=== PATIENT | male | born 1970 | race Caucasian/White ===

== ENCOUNTER 2017-07-06 13:08 | Emergency (ER) | payer SELFPAY ==
[~2017-07-06] VITALS: Wt 108.4 kg
[~2017-07-06 13:08] MED LIST: ALBUTEROL0.09 MG/A2 IH; Atrovent I0.5 MG/2.5 INH; CORDROL20 MG PO; DAYPRO600 M1 PO; DOXYCYCLINE HY100 M3 PO; MEDROL DOSEPAK4 MG PO; PREDNICOT20 MG PO; PREDNISONE10 MG PO; PROVENTIL0.09 MG/A1 IH; PROVENTIL0.09 MG/AC IH; SKELAXIN800 MG PO; VIBRAMYCIN100 MG PO; ZITHROMAX250 MG PO
[2017-07-06] MEDS ORDERED: PROVENTIL HFA6.7 GM INH (13:30)
[2017-07-06 13:56] LABS: BASO % 0.4 % (0.0-1.0); EOS # 0.3 10*3/uL (0.0-0.4); EOS % 2.8 % (1.0-4.0); HEMATOCRIT 41.3 % (42.0-52.0); HEMOGLOBIN 14.7 g/dl (14.0-18.0); LYMPH % 18.4 % (27.0-41.0); MEAN CELL VOLUME 89.4 fl (80.0-94.0); MEAN CORPUSCULAR HGB 31.8 pg (27.0-31.0); MEAN CORPUSCULAR HGB CONC 35.6 g/dl (33.0-37.0); MEAN PLATELET VOLUME 8.5 fl (9.6-12.3); MONO # 0.6 10*3/uL (0.1-1.0); MONO % 5.1 % (3.0-9.0); NEUT % 72.9 % (47.0-73.0); PLATELET COUNT AUTOMATED 310 10*3/uL (130-400); RED BLOOD COUNT 4.62 10*6/uL (4.50-5.90); RED CELL DISTRI WIDTH 12.2 % (0-14.5)
[2017-07-06 14:15] LABS: ALBUMIN 3.9 gm/dl (3.1-4.5); ALKALINE PHOSPHATASE 86 U/L (45-117); BUN 16 mg/dl (7-24); CHLORIDE 104 mmol/L (98-107); CREATININE 0.93 mg/dL (0.70-1.30); POTASSIUM 3.8 mmol/L (3.5-5.1); SGOT/AST 23 IU/L (3-35); SGPT/ALT 31 U/L (12-78); SODIUM 138 mmol/L (136-145)
[2017-07-06 14:18] LABS: TROPONIN I < 0.015 ng/ml (<0.045)
[2017-07-06] MEDS ORDERED: PREDNISONE20 M1 PO (15:13)
[2017-07-06] MEDS ORDERED: ZITHROMAX250 MG PO (15:13)
[2017-07-06] MEDS ORDERED: DUONEB 3 MG/3 ML3 M1 INH (15:15)
== END 2017-07-06 13:36 | disposition home or self-care (01) ==
LOC: ED 13:08
PROVIDERS: Nurse Practitioner Family
DX: J20.9 Acute bronchitis, unspecified (principal); J44.9 Chronic obstructive pulmonary disease, unspecified; Z88.0 Allergy status to penicillin

== ENCOUNTER 2017-09-26 09:44 | Emergency (ER) | payer SELFPAY ==
[~2017-09-26] VITALS: Ht 175.2 cm; Wt 108.9 kg
[~2017-09-26 09:44] MED LIST changes: +DUONEB 3 MG/3 ML3 M1 INH; +PREDNISONE20 M1 PO; +PROVENTIL HFA6.7 GM INH
[2017-09-26 10:14] LABS: BASO # 0.1 10*3/uL (0.0-0.1); BASO % 0.8 % (0.0-1.0); EOS # 0.8 10*3/uL (0.0-0.4); EOS % 12.5 % (1.0-4.0); HEMATOCRIT 44.1 % (42.0-52.0); HEMOGLOBIN 15.5 g/dl (14.0-18.0); LYMPH # 2.3 10*3/uL (1.3-4.4); LYMPH % 35.7 % (27.0-41.0); MEAN CORPUSCULAR HGB 30.9 pg (27.0-31.0); MEAN CORPUSCULAR HGB CONC 35.1 g/dl (33.0-37.0); MEAN PLATELET VOLUME 8.7 fl (9.6-12.3); MONO # 0.4 10*3/uL (0.1-1.0); MONO % 6.7 % (3.0-9.0); NEUT # 2.9 10*3/uL (2.3-7.9); PLATELET COUNT AUTOMATED 291 10*3/uL (130-400); RED BLOOD COUNT 5.01 10*6/uL (4.50-5.90); RED CELL DISTRI WIDTH 12.1 % (0-14.5); WHITE BLOOD COUNT 6.6 10*3/uL (4.8-10.8)
[2017-09-26 10:30] LABS: ALBUMIN 4.1 gm/dl (3.1-4.5); ALKALINE PHOSPHATASE 77 U/L (45-117); BUN 12 mg/dl (7-24); CHLORIDE 106 mmol/L (98-107); CREATININE 0.93 mg/dL (0.70-1.30); POTASSIUM 4.1 mmol/L (3.5-5.1); SGOT/AST 40 IU/L (3-35); SGPT/ALT 53 U/L (12-78); SODIUM 141 mmol/L (136-145); TOTAL PROTEIN 7.5 gm/dL (6.4-8.2)
[2017-09-26 10:32] LABS: TROPONIN I < 0.015 ng/ml (<0.045)
[2017-09-26] MEDS ORDERED: DELTASONE20 M1 PO (11:40)
[2017-09-26] MEDS ORDERED: VIBRAMYCIN100 MG PO (11:40)
[2017-09-26] MEDS ORDERED: CODEINE-GUAIFE120 M1 PO (11:42)
== END 2017-09-26 12:19 | disposition home or self-care (01) ==
LOC: ED 09:44
PROVIDERS: Physician Assistant
DX: J44.1 Chronic obstructive pulmonary disease with (acute) exacerbation (principal); Z88.0 Allergy status to penicillin; Z79.899 Other long term (current) drug therapy

== ENCOUNTER 2017-11-05 14:20 | Inpatient (IN) | payer SELFPAY ==
[~2017-11-05] VITALS: Ht 175.2 cm; Wt 108.9 kg
--- NOTE | ~2017-11-05 | PR ---
[place], [place] PROGRESS NOTE NAME: EMILIA BRIONES UNIT #: [id number] ROOM: 412 DOCTOR: AUBRIE YOUNG MD BIRTHDATE: [birth year] DOS: 11/07/2017 PULMONARY PROGRESS NOTE SUBJECTIVE: He was seen and examined on 11/07/2017. He has been noted with progressive resolution of the acute respiratory symptoms of coughing, shortness of breath and wheezing. There were no symptoms of chest pain. Denies symptoms of hemoptysis. OBJECTIVE: VITAL SIGNS: For the patient which were recorded showed normal temperature, respiratory rate 20, heart rate 107, blood pressure 140/90. The pulse oxygen saturation of the patient recorded as 92% on 1-1/2 liter nasal cannula. HEENT: Showed head was atraumatic, eyes nonicterus, moderate obesity. NECK: Supple. CARDIOVASCULAR: S1, S2 audible. LUNGS: The patient was noted without any wheeze or crackles at the present time. The breaths are noted [id number] diminished bilaterally. ABDOMEN: Soft, nontender. EXTREMITIES: Without any acute edema. LABORATORY DATA: WBC count today was noted as 16,000. IMPRESSION: 1. The patient with significant improvement has been noted with the acute exacerbation of chronic obstructive pulmonary disease with acute bronchitis, may be viral in origin. 2. Past history of nicotine abuse. 3. Chronic obesity. PLAN OF THERAPY: The patient could be considered for home discharge on oral medication, corticosteroids and bronchodilator treatment. Continue usual other previous treatment, therapy, plan of management and care. Usual treatment and other supportive therapies. [place], [place] PROGRESS NOTE NAME: EMILIA BRIONES UNIT #: [id number] ROOM: 412 DOCTOR: AUBRIE YOUNG MD BIRTHDATE: [birth year] AUBRIE BRADLEY MD CM:PNTRANS [id number] AUBRIE SANCHEZ MD 11/08/17 0018 interface
--- NOTE | ~2017-11-05 | CON ---
[place], [place] REPORT OF CONSULTATION NAME: EMILIA BRIONES [facility] #: [id number] UNIT #: [id number] ROOM: 412 DOCTOR: VLAD YOUNG MDULAM BIRTHDATE: [birth year] DOS: 11/06/2017 REASON FOR CONSULTATION: Assess the patient for acute pneumonia and other abnormal respiratory symptoms. HISTORY OF PRESENT ILLNESS: This is a 47-year-old white male patient, who stated that he has been noted sick for the last 3 months intermittently, treated in the Emergency Room for assessment a couple of times. He presented back to the Emergency Room yesterday, as he has been noted with increased respiratory symptom. The patient stated symptoms of having increased shortness of breath associated with coughing. The coughing has been noted nonproductive. Symptoms are present about 3 to 4 days prior to admission to the hospital. The patient denies symptoms of hemoptysis with that. He does report symptoms of wheezing or tightness in the chest. He stated that he has been admitted to the hospital and diagnosed with acute pneumonia for this admission. REVIEW OF SYSTEMS: CONSTITUTIONAL: Fatigue and tiredness noted. Denies symptoms of fever or chills. EYES: Denies any burning, redness, or tenderness. EARS, NOSE, THROAT SYMPTOMS: Denies sore throat, hoarseness, otalgia or postnasal drainage. CARDIOVASCULAR: Denies anginal pain, edema of the lower extremities or palpitation. GASTROINTESTINAL: Denies dysphagia. Nausea noted on admission for a few times, which has been improved. There was no vomiting. Denies hematemesis, melena, hematochezia, dysphagia or abnormal weight loss. GENITOURINARY: Denies dysuria, suprapubic pain or hematuria. MUSCULOSKELETAL: Denies acute joint pain, redness, tenderness. The patient denies any deformities or pain in the muscles or joints. SKIN: Denies abnormal lesions or rashes. CENTRAL NERVOUS SYSTEM: Denies dizziness, headache, diplopia, syncopal episodes or tingling sensation of the extremities. SKIN: Denies abnormal lesions or rashes. Remaining systems were reviewed for the patient, they were noted all negative. PAST MEDICAL HISTORY: Has been reported diagnoses of: 1. Bronchial asthma, severity unknown. 2. Chronic obstructive pulmonary disease. 3. Hypertension. 4. Obesity. 5. Neuropathy. 6. Seasonal allergies. SOCIAL HISTORY: Noted as the patient is currently . He lives at home. He was noted very heavy tobacco use, 3 to 5 packs of cigarettes per day, started at teenager, which was discontinued in 2012. FAMILY HISTORY: Unknown since the patient was adopted. [place], [place] REPORT OF CONSULTATION NAME: EMILIA BRIONES UNIT #: [id number] ROOM: [facility] DOCTOR: PAXTON YOUNG MDM BIRTHDATE: [birth year] PAST SURGICAL HISTORY: The patient was noted with no major surgeries. HOME MEDICATIONS: Noted essentially use of Ventolin HFA inhaler, p.r.n. use. DRUG ALLERGIES: NOTED ALLERGY TO THE PENICILLINS. PHYSICAL EXAMINATION: GENERAL: A 47-year-old male, who has been currently noted to be awake and alert without any distress. Height of 5 feet 9 inches, weight of 240 pounds, BMI 35.2. VITAL SIGNS: Normal temperature, respiratory rate 22, heart rate 125-95, blood pressure 137/68 to 139/87. Pulse oxygen saturation of the patient noted on 2 liters nasal cannula is 90% saturation, the room air on admission was 93% saturation. HEENT: Shows head was atraumatic. Eyes nonicterus. Chronic moderate obesity. NECK: Supple. Head was atraumatic. Decreased posterior pharyngeal space. CARDIOVASCULAR SYSTEM: S1, S2 audible. LUNGS: Noted without any audible wheezing. Breaths are noted mild to moderately decreased bilaterally. ABDOMEN: Noted soft with moderate obesity. Bowel sounds present. VISIBLE SKIN: The patient has no lesions or rashes. CENTRAL NERVOUS SYSTEM: Intact. No focal deficit. MUSCULOSKELETAL: Without any acute deformities. LABORATORY DATA: Influenza A and B nasal washing antigen on 11/05/2017 normal. CBC for the patient on 11/05/2017 was noted normal as well. CMP for the patient on 11/05/2017 with normal BUN and creatinine. LFTs were normal. Troponin for the patient on 3 sets in the last 24 hours from admission noted all normal. CBC this morning remains normal. CMP this morning: Glucose 161, BUN and creatinine were normal. D-dimer was noted in normal range. Strep throat antigen was noted negative with pending cultures. Influenza A and B nasal washing antigens were negative. The chest x-ray of the patient that was done 2-view does not show any acute pulmonary infiltration. CT of the chest was done later on from the Emergency Room, it was noted without any evidence of pulmonary embolism. There was no evidence of acute pneumonia. IMPRESSION: 1. The patient will be currently admitted to the hospital, noted with possibility of acute exacerbation of chronic obstructive pulmonary disease with acute bronchitis, maybe viral in origin. 2. Chronic obesity as well. 3. Past history of nicotine use as well. PLAN OF MANAGEMENT: Reduce the Solu-Medrol dose for this patient to 40 mg Solu-Medrol b.i.d. Continue to monitor the patient. In the next 24 hours, if the patient does well, may be considered for home discharge on oral medications. In the meantime, all other supportive therapy, plan of management will be continued. Usual care. Additional treatment changes will be made based on the progression of his illness. [place], [place] REPORT OF CONSULTATION NAME: EMILIA BRIONES UNIT #: [id number] ROOM: 412 DOCTOR: AUBRIE YOUNG MD BIRTHDATE: [birth year] AUBRIE BRADLEY MD CM:CONSTR:REPORT OF CONSULTATION 1407 11/07/17 0634 interface
[~2017-11-05 14:20] MED LIST changes: +CODEINE-GUAIFE120 M1 PO; +DELTASONE20 M1 PO
[2017-11-05 14:40] VITALS: BP 139/87
[2017-11-05 15:37] LABS: BASO % 0.5 % (0.0-1.0); EOS # 0.5 10*3/uL (0.0-0.4); EOS % 6.5 % (1.0-4.0); HEMATOCRIT 46.1 % (42.0-52.0); HEMOGLOBIN 16.6 g/dl (14.0-18.0); LYMPH # 1.5 10*3/uL (1.3-4.4); LYMPH % 18.8 % (27.0-41.0); MEAN CELL VOLUME 88.1 fl (80.0-94.0); MEAN CORPUSCULAR HGB 31.7 pg (27.0-31.0); MEAN PLATELET VOLUME 9.4 fl (9.6-12.3); MONO # 0.7 10*3/uL (0.1-1.0); MONO % 9.5 % (3.0-9.0); NEUT % 64.4 % (47.0-73.0); PLATELET COUNT AUTOMATED 237 10*3/uL (130-400); RED BLOOD COUNT 5.23 10*6/uL (4.50-5.90); RED CELL DISTRI WIDTH 12.3 % (0-14.5); WHITE BLOOD COUNT 7.7 10*3/uL (4.8-10.8)
[2017-11-05 15:45] VITALS: BP 116/85
[2017-11-05 15:59] LABS: ALBUMIN 4.4 gm/dl (3.1-4.5); ALKALINE PHOSPHATASE 87 U/L (45-117); BUN 16 mg/dl (7-24); CHLORIDE 105 mmol/L (98-107); CREATININE 1.04 mg/dL (0.70-1.30); POTASSIUM 3.7 mmol/L (3.5-5.1); SGOT/AST 33 IU/L (3-35); SGPT/ALT 45 U/L (12-78); SODIUM 138 mmol/L (136-145); TOTAL PROTEIN 7.9 gm/dL (6.4-8.2)
[2017-11-05 16:06] LABS: TROPONIN I < 0.015 ng/ml (<0.045)
[2017-11-05 17:45] VITALS: BP 142/85
[2017-11-05 20:00] VITALS: BP 141/72
[2017-11-06] VITALS: BP 132/66
[2017-11-06 06:17] LABS: BASO % 0.1 % (0.0-1.0); HEMATOCRIT 41.8 % (42.0-52.0); HEMOGLOBIN 14.7 g/dl (14.0-18.0); LYMPH # 0.5 10*3/uL (1.3-4.4); LYMPH % 7.1 % (27.0-41.0); MEAN CELL VOLUME 90.1 fl (80.0-94.0); MEAN CORPUSCULAR HGB 31.7 pg (27.0-31.0); MEAN CORPUSCULAR HGB CONC 35.2 g/dl (33.0-37.0); MEAN PLATELET VOLUME 9.4 fl (9.6-12.3); MONO # 0.2 10*3/uL (0.1-1.0); MONO % 3.4 % (3.0-9.0); NEUT # 6.2 10*3/uL (2.3-7.9); NEUT % 88.8 % (47.0-73.0); PLATELET COUNT AUTOMATED 235 10*3/uL (130-400); RED BLOOD COUNT 4.64 10*6/uL (4.50-5.90); RED CELL DISTRI WIDTH 12.1 % (0-14.5)
[2017-11-06 06:33] LABS: ALBUMIN 3.7 gm/dl (3.1-4.5); ALKALINE PHOSPHATASE 77 U/L (45-117); BUN 18 mg/dl (7-24); CHLORIDE 109 mmol/L (98-107); CHOLESTEROL 197 mg/dL (<200); CREATININE 1.09 mg/dL (0.70-1.30); HDL CHOLESTEROL 35 mg/dl (40-60); LDL CHOLESTEROL 139 mg/dL (9-159); POTASSIUM 4.1 mmol/L (3.5-5.1); SGOT/AST 26 IU/L (3-35); SGPT/ALT 40 U/L (12-78); SODIUM 141 mmol/L (136-145); TOTAL PROTEIN 7.2 gm/dL (6.4-8.2); TRIGLYCERIDES 115 mg/dl (<150); VLDL CHOLESTEROL 23 mg/dL (6-40)
[2017-11-06 06:39] LABS: THYROID STIM HORMONE (HS) 0.332 uIU/ml (0.358-4.75)
[2017-11-06 06:55] LABS: ACT PARTIAL THROMBO TIME 20.9 SECONDS (20.8-31.5); INTERNATIONAL NORM RATIO 0.9 (2.0-3.5)
[2017-11-06 07:13] LABS: VITAMIN D, 25-HYDROXY 23.5 ng/mL (30-100)
[2017-11-06 08:00] VITALS: BP 156/90
[2017-11-06 12:00] VITALS: BP 137/68
[2017-11-06 16:00] VITALS: BP 139/66
[2017-11-06 20:00] VITALS: BP 154/65
[2017-11-07] VITALS: BP 103/59; BP 127/61
[2017-11-07 06:53] LABS: BASO % 0.1 % (0.0-1.0); HEMATOCRIT 41.2 % (42.0-52.0); HEMOGLOBIN 14.3 g/dl (14.0-18.0); LYMPH % 5.9 % (27.0-41.0); MEAN CELL VOLUME 90.9 fl (80.0-94.0); MEAN CORPUSCULAR HGB 31.6 pg (27.0-31.0); MEAN CORPUSCULAR HGB CONC 34.7 g/dl (33.0-37.0); MEAN PLATELET VOLUME 9.2 fl (9.6-12.3); MONO # 0.8 10*3/uL (0.1-1.0); NEUT # 14.1 10*3/uL (2.3-7.9); NEUT % 88.1 % (47.0-73.0); PLATELET COUNT AUTOMATED 242 10*3/uL (130-400); RED BLOOD COUNT 4.53 10*6/uL (4.50-5.90); RED CELL DISTRI WIDTH 12.4 % (0-14.5)
[2017-11-07 07:14] LABS: ALBUMIN 3.7 gm/dl (3.1-4.5); BUN 18 mg/dl (7-24); CHLORIDE 108 mmol/L (98-107); CREATININE 0.81 mg/dL (0.70-1.30); POTASSIUM 4.2 mmol/L (3.5-5.1); SGOT/AST 22 IU/L (3-35); SGPT/ALT 34 U/L (12-78); SODIUM 139 mmol/L (136-145)
[2017-11-07 07:16] LABS: ALKALINE PHOSPHATASE 75 U/L (45-117)
[2017-11-07 08:00] VITALS: BP 140/90
[2017-11-07 12:00] VITALS: BP 128/70
[2017-11-07] MEDS ORDERED: PROAIR HFA8.5 GM INH (13:09)
[2017-11-07] MEDS ORDERED: MUCINEX ER600 MG PO (13:09)
[2017-11-07] MEDS ORDERED: DOXYCYCLINE100 M3 PO (13:09)
[2017-11-07] MEDS ORDERED: VITAMIN D-32000 UNIT PO (13:09)
[2017-11-07] MEDS ORDERED: VENTOLIN 02.5 MG/3 M INH (13:09)
[2017-11-07] MEDS ORDERED: PREDNISONE10 MG PO (13:10)
== END 2017-11-07 14:10 | disposition home or self-care (01) | DRG 871 ==
LOC: ED 14:20 → EDHOLD 16:25 → 4E 17:00
PROVIDERS: Family Medicine; Internal Medicine; Nurse Practitioner Family
DX: A41.9 Sepsis, unspecified organism (principal); J18.9 Pneumonia, unspecified organism; J44.1 Chronic obstructive pulmonary disease with (acute) exacerbation; J44.0 Chronic obstructive pulmonary disease with (acute) lower respiratory infection; R03.0 Elevated blood-pressure reading, without diagnosis of hypertension; I10 Essential (primary) hypertension; E78.5 Hyperlipidemia, unspecified; G62.9 Polyneuropathy, unspecified; E66.9 Obesity, unspecified; J30.2 Other seasonal allergic rhinitis; J20.9 Acute bronchitis, unspecified; Z88.0 Allergy status to penicillin; Z79.899 Other long term (current) drug therapy; Z87.891 Personal history of nicotine dependence; Z68.35 Body mass index [BMI] 35.0-35.9, adult

== ENCOUNTER 2018-06-29 13:32 | Emergency (ER) | payer SELFPAY ==
[~2018-06-29] VITALS: Ht 177.8 cm; Wt 117.9 kg
--- NOTE | ~2018-06-29 | EKG ---
[place], [place] ELECTROCARDIOGRAM REPORT NAME: EMILIA BRIONES UNIT #: [id number] ROOM: DOCTOR: JOHN DRAFT REPORT BIRTHDATE: [birth year] [facility] Test Date: 2018-06-29 Test Time: 13:36:44 Pat Name: EMILIA BRIONES Department: Room: Gender: Kennel Manager Dog Track: : 1970 Requested By: TROY CARLTON Order Number: [id number] Reading MD: Vanessa Funk MD Measurements Intervals [place] Rate: 109 P: 71 PA: 162 QRS: 59 QRSD: 105 T: 16 QT: 346 QTc: 467 Interpretive Statements Sinus tachycardia Abnormal inferior Q waves Electronically Signed On 07-04-2018 13:46:41 PDT by Vanessa Funk MD CM:EKGRPT:ELECTROCARDIOGRAM REPORT [id number] TROY LOPEZ DRAFT REPORT TROY CARLTON MD
[~2018-06-29 13:32] MED LIST changes: +DOXYCYCLINE100 M3 PO; +MUCINEX ER600 MG PO; +PROAIR HFA8.5 GM INH; +VENTOLIN 02.5 MG/3 M INH; +VITAMIN D-32000 UNIT PO
[2018-06-29 14:02] LABS: BASO # 0.1 10*3/uL (0.0-0.1); BASO % 0.6 % (0.0-1.0); EOS # 0.5 10*3/uL (0.0-0.4); EOS % 6.6 % (1.0-4.0); HEMATOCRIT 42.2 % (42.0-52.0); HEMOGLOBIN 14.9 g/dl (14.0-18.0); LYMPH # 2.3 10*3/uL (1.3-4.4); LYMPH % 29.7 % (27.0-41.0); MEAN CELL VOLUME 88.5 fl (80.0-94.0); MEAN CORPUSCULAR HGB 31.2 pg (27.0-31.0); MEAN CORPUSCULAR HGB CONC 35.3 g/dl (33.0-37.0); MEAN PLATELET VOLUME 9.1 fl (9.6-12.3); MONO # 0.6 10*3/uL (0.1-1.0); MONO % 7.4 % (3.0-9.0); NEUT # 4.3 10*3/uL (2.3-7.9); NEUT % 55.6 % (47.0-73.0); PLATELET COUNT AUTOMATED 274 10*3/uL (130-400); RED BLOOD COUNT 4.77 10*6/uL (4.50-5.90); RED CELL DISTRI WIDTH 12.2 % (0-14.5); WHITE BLOOD COUNT 7.7 10*3/uL (4.8-10.8)
[2018-06-29 14:14] LABS: ACT PARTIAL THROMBO TIME 23.3 SECONDS (20.8-31.5); ALBUMIN 4.1 gm/dl (3.1-4.5); ALKALINE PHOSPHATASE 76 U/L (45-117); BUN 13 mg/dl (7-24); CHLORIDE 105 mmol/L (98-107); CREATININE 1.09 mg/dL (0.70-1.30); POTASSIUM 3.6 mmol/L (3.5-5.1); SGOT/AST 32 IU/L (3-35); SGPT/ALT 36 U/L (12-78); SODIUM 140 mmol/L (136-145); TOTAL PROTEIN 7.1 gm/dL (6.4-8.2)
[2018-06-29 14:17] LABS: TROPONIN I < 0.015 ng/ml (<0.045)
[2018-06-29] MEDS ORDERED: PREDNISONE50 MG PO (14:22)
[2018-06-29] MEDS ORDERED: PROVENTIL HFA6.7 GM INH (14:22)
[2018-06-29] MEDS ORDERED: SPIRIVA -- 3018 MCG INH (14:22)
== END 2018-06-29 15:19 | disposition home or self-care (01) ==
LOC: ED 13:32
PROVIDERS: Emergency Medicine
DX: J44.1 Chronic obstructive pulmonary disease with (acute) exacerbation (principal); I10 Essential (primary) hypertension; Z88.0 Allergy status to penicillin; Z79.899 Other long term (current) drug therapy; Z68.39 Body mass index [BMI] 39.0-39.9, adult

== ENCOUNTER 2018-09-03 09:56 | Inpatient (IN) | payer SELFPAY ==
[~2018-09-03] VITALS: Ht 177.8 cm; Wt 118.0 kg
--- NOTE | ~2018-09-03 | EKG ---
[place], [place] ELECTROCARDIOGRAM REPORT NAME: EMILIA BRIONES UNIT #: [id number] ROOM: 425 DOCTOR: JOHN DRAFT REPORT BIRTHDATE: [birth year] [facility] Test Date: 2018-09-03 Test Time: 10:15:38 Pat Name: EMILIA BRIONES Department: Room: 425 Gender: M Solar Installation Technician: Cheryl Galindo : 1970 Requested By: NICOLÁS GIBBS Order Number: [id number] Reading MD: Mary Bailey MD Measurements Intervals [place] Rate: 88 P: 63 WI: 159 QRS: 31 QRSD: 102 T: 23 QT: 351 QTc: 425 Interpretive Statements Sinus rhythm Compared to ECG 06/29/2018 13:36:44 Sinus tachycardia no longer present Inferior Q waves no longer present Q waves no longer present Electronically Signed On 09-05-2018 7:52:37 PST by Mary Bailey MD CM:EKGRPT:ELECTROCARDIOGRAM REPORT [id number] NICOLÁS GIBBS EPIPHANY DRAFT REPORT NICOLÁS GIBBS
[~2018-09-03 09:56] MED LIST changes: +PREDNISONE50 MG PO; +SPIRIVA -- 3018 MCG INH
[2018-09-03 09:57] VITALS: BP 170/100
[2018-09-03 10:49] LABS: BASO # 0.1 10*3/uL (0.0-0.1); BASO % 0.9 % (0.0-1.0); EOS # 0.7 10*3/uL (0.0-0.4); EOS % 11.9 % (1.0-4.0); HEMATOCRIT 46.5 % (42.0-52.0); HEMOGLOBIN 16.3 g/dl (14.0-18.0); LYMPH # 1.7 10*3/uL (1.3-4.4); LYMPH % 30.5 % (27.0-41.0); MEAN CELL VOLUME 88.9 fl (80.0-94.0); MEAN CORPUSCULAR HGB 31.2 pg (27.0-31.0); MEAN CORPUSCULAR HGB CONC 35.1 g/dl (33.0-37.0); MEAN PLATELET VOLUME 9.3 fl (9.6-12.3); MONO # 0.4 10*3/uL (0.1-1.0); MONO % 7.9 % (3.0-9.0); NEUT # 2.7 10*3/uL (2.3-7.9); NEUT % 48.6 % (47.0-73.0); PLATELET COUNT AUTOMATED 250 10*3/uL (130-400); RED BLOOD COUNT 5.23 10*6/uL (4.50-5.90); RED CELL DISTRI WIDTH 12.2 % (0-14.5); WHITE BLOOD COUNT 5.5 10*3/uL (4.8-10.8)
[2018-09-03 11:09] LABS: ALKALINE PHOSPHATASE 90 U/L (45-117); BUN 15 mg/dl (7-24); CHLORIDE 107 mmol/L (98-107); CREATININE 1.11 mg/dL (0.70-1.30); SGOT/AST 21 IU/L (3-35); SGPT/ALT 29 U/L (12-78); SODIUM 141 mmol/L (136-145); TOTAL PROTEIN 7.4 gm/dL (6.4-8.2)
[2018-09-03 11:10] LABS: TROPONIN I < 0.015 ng/ml (<0.045)
[2018-09-03 11:25] VITALS: BP 127/71
[2018-09-03 12:19] VITALS: BP 128/80
[2018-09-03 16:00] VITALS: BP 127/69
[2018-09-03 20:00] VITALS: BP 143/75
[2018-09-04] VITALS: BP 107/53
[2018-09-04 06:10] LABS: ALBUMIN 3.7 gm/dl (3.1-4.5); ALKALINE PHOSPHATASE 99 U/L (45-117); BUN 17 mg/dl (7-24); CHLORIDE 111 mmol/L (98-107); PHOSPHOROUS 1.3 mg/dL (2.5-4.9); POTASSIUM 3.9 mmol/L (3.5-5.1); SGOT/AST 15 IU/L (3-35); SGPT/ALT 27 U/L (12-78); SODIUM 143 mmol/L (136-145)
[2018-09-04 06:15] LABS: ACT PARTIAL THROMBO TIME 20.7 SECONDS (20.8-31.5); INTERNATIONAL NORM RATIO 0.9 (2.0-3.5)
[2018-09-04 06:19] LABS: HEMATOCRIT 46.1 % (42.0-52.0); HEMOGLOBIN 15.2 g/dl (14.0-18.0); MEAN CORPUSCULAR HGB 30.5 pg (27.0-31.0); MEAN PLATELET VOLUME 9.8 fl (9.6-12.3); PLATELET COUNT AUTOMATED 265 10*3/uL (130-400); RED BLOOD COUNT 4.98 10*6/uL (4.50-5.90); RED CELL DISTRI WIDTH 12.3 % (0-14.5); WHITE BLOOD COUNT 10.6 10*3/uL (4.8-10.8)
[2018-09-04 06:22] LABS: MEAN CELL VOLUME 92.6 fl (80.0-94.0)
[2018-09-04 06:58] LABS: PLATELET SUFFICIENCY NORMAL (NORMAL); TOTAL CELLS COUNTED 100 #CELLS
[2018-09-04 08:00] VITALS: BP 130/86
[2018-09-04 08:50] LABS: VITAMIN D, 25-HYDROXY 31.1 ng/mL (30-100)
[2018-09-04] MEDS ORDERED: SPIRIVA -- 3018 MCG INH (10:56)
[2018-09-04] MEDS ORDERED: MUCINEX ER600 MG PO (10:56)
[2018-09-04] MEDS ORDERED: PREDNISONE10 MG PO (10:56)
[2018-09-04] MEDS ORDERED: PROVENTIL HFA6.7 GM INH (10:56)
[2018-09-04] MEDS ORDERED: Ipratropium Brom3 ML NEB (10:56)
[2018-09-04] MEDS ORDERED: LEVAQUIN750 M1 PO (10:57)
== END 2018-09-04 11:23 | disposition home or self-care (01) | DRG 871 ==
LOC: ED 09:56 → EDHOLD 11:54 → 4E 12:03
PROVIDERS: Internal Medicine; Nurse Practitioner Family
DX: A41.9 Sepsis, unspecified organism (principal); J18.9 Pneumonia, unspecified organism; J44.0 Chronic obstructive pulmonary disease with (acute) lower respiratory infection; J44.1 Chronic obstructive pulmonary disease with (acute) exacerbation; J30.2 Other seasonal allergic rhinitis; G62.9 Polyneuropathy, unspecified; F12.90 Cannabis use, unspecified, uncomplicated; E83.39 Other disorders of phosphorus metabolism; I10 Essential (primary) hypertension; E78.5 Hyperlipidemia, unspecified; E66.9 Obesity, unspecified; Z88.1 Allergy status to other antibiotic agents; Z87.891 Personal history of nicotine dependence; Z79.51 Long term (current) use of inhaled steroids; Z79.899 Other long term (current) drug therapy; Z68.37 Body mass index [BMI] 37.0-37.9, adult

== ENCOUNTER → 2018-10-04 | Outpatient (CLI) | payer SELFPAY ==
[~2018-10-04] MED LIST changes: +Ipratropium Brom3 ML NEB; +LEVAQUIN750 M1 PO
== END | disposition home or self-care (01) ==
LOC: RESCLI 01:10
DX: I10 Essential (primary) hypertension (principal); J44.9 Chronic obstructive pulmonary disease, unspecified; E66.9 Obesity, unspecified; J30.2 Other seasonal allergic rhinitis; F41.9 Anxiety disorder, unspecified; F17.210 Nicotine dependence, cigarettes, uncomplicated; Z71.6 Tobacco abuse counseling; Z79.899 Other long term (current) drug therapy; Z88.0 Allergy status to penicillin

== ENCOUNTER → 2018-10-19 | Outpatient (CLI) | payer SELFPAY | END | disposition home or self-care (01) | LOC: RESCLI 00:24 | DX: J44.9 Chronic obstructive pulmonary disease, unspecified (principal); F41.9 Anxiety disorder, unspecified; E66.9 Obesity, unspecified; I10 Essential (primary) hypertension; Z79.899 Other long term (current) drug therapy; Z88.0 Allergy status to penicillin ==

== ENCOUNTER → 2018-11-23 | Outpatient (CLI) | payer SELFPAY | END | disposition home or self-care (01) | LOC: RESCLI 02:34 | DX: J44.9 Chronic obstructive pulmonary disease, unspecified (principal); F41.9 Anxiety disorder, unspecified; M15.0 Primary generalized (osteo)arthritis; F33.1 Major depressive disorder, recurrent, moderate; J32.0 Chronic maxillary sinusitis; Z79.899 Other long term (current) drug therapy; Z88.0 Allergy status to penicillin ==

== ENCOUNTER → 2019-03-22 | Outpatient (CLI) | payer SELFPAY | END | disposition home or self-care (01) | LOC: RESCLI 01:44 | DX: J44.9 Chronic obstructive pulmonary disease, unspecified (principal); M15.0 Primary generalized (osteo)arthritis; F33.1 Major depressive disorder, recurrent, moderate; J32.0 Chronic maxillary sinusitis; K42.9 Umbilical hernia without obstruction or gangrene; I10 Essential (primary) hypertension; E66.9 Obesity, unspecified; Z68.39 Body mass index [BMI] 39.0-39.9, adult; Z87.891 Personal history of nicotine dependence; Z88.0 Allergy status to penicillin; Z79.899 Other long term (current) drug therapy ==

== ENCOUNTER 2019-06-07 09:41 | Emergency (ER) | payer OTHER ==
--- NOTE | ~2019-06-07 | EKG ---
[place], [place] ELECTROCARDIOGRAM REPORT NAME: EMILIA BRIONES UNIT #: [id number] ROOM: DOCTOR: EPIPHANY DRAFT REPORT BIRTHDATE: [birth year] [facility] Test Date: 2019-06-07 Test Time: 12:25:24 Pat Name: EMILIA BRIONES Department: Room: Gender: Circuit Board Inspector: MATIAS : 1970 Requested By: ACACIA MORAN Order Number: [id number] Reading MD: Aide Wolf MD Measurements Intervals [place] Rate: 90 P: 46 UT: 164 QRS: 15 QRSD: 96 T: 35 QT: 345 QTc: 422 Interpretive Statements Sinus rhythm Low voltage, precordial leads Compared to ECG 09/03/2018 10:15:38 Low QRS voltage now present Electronically Signed On 06-07-2019 14:20:52 PDT by Aide Wolf MD CM:EKGRPT:ELECTROCARDIOGRAM REPORT [id number] ACACIA LOPEZ DRAFT REPORT ACACIA MORAN M.D.
--- NOTE | ~2019-06-07 | EKG ---
[place], [place] ELECTROCARDIOGRAM REPORT NAME: EMILIA BRIONES UNIT #: [id number] ROOM: DOCTOR: EPIPHANY DRAFT REPORT BIRTHDATE: [birth year] [facility] Test Date: 2019-06-07 Test Time: 09:47:52 Pat Name: EMILIA BRIONES Department: Room: Gender: Book Publisher: : 1970 Requested By: ACACIA MORAN Order Number: [id number] Reading MD: Aide Wolf MD Measurements Intervals [place] Rate: 100 P: 63 MT: 159 QRS: 36 QRSD: 95 T: 39 QT: 337 QTc: 435 Interpretive Statements Sinus tachycardia Baseline wander in lead(s) V6 Compared to ECG 09/03/2018 10:15:38 Sinus rhythm no longer present Electronically Signed On 06-07-2019 14:18:43 PDT by Aide Wolf MD CM:EKGRPT:ELECTROCARDIOGRAM REPORT [id number] ACACIA LOPEZ DRAFT REPORT ACACIA MORAN M.D.
[2019-06-07 10:00] LABS: BASO % 0.4 % (0.0-1.0); EOS # 0.6 10*3/uL (0.0-0.4); EOS % 6.1 % (1.0-4.0); HEMATOCRIT 47.5 % (42.0-52.0); HEMOGLOBIN 16.3 g/dl (14.0-18.0); LYMPH # 2.1 10*3/uL (1.3-4.4); LYMPH % 20.8 % (27.0-41.0); MEAN CELL VOLUME 88.8 fl (80.0-94.0); MEAN CORPUSCULAR HGB 30.5 pg (27.0-31.0); MEAN CORPUSCULAR HGB CONC 34.3 g/dl (33.0-37.0); MEAN PLATELET VOLUME 9.4 fl (9.6-12.3); MONO # 0.6 10*3/uL (0.1-1.0); NEUT # 6.7 10*3/uL (2.3-7.9); NEUT % 66.4 % (47.0-73.0); PLATELET COUNT AUTOMATED 279 10*3/uL (130-400); RED BLOOD COUNT 5.35 10*6/uL (4.50-5.90); WHITE BLOOD COUNT 10.1 10*3/uL (4.8-10.8)
[2019-06-07 10:11] LABS: ACT PARTIAL THROMBO TIME 26.8 SECONDS (20.0-32.1); INTERNATIONAL NORM RATIO 0.9 (2.0-3.5)
[2019-06-07 10:19] LABS: ALBUMIN 4.3 gm/dl (3.1-4.5); ALKALINE PHOSPHATASE 89 U/L (45-117); BUN 18 mg/dl (7-24); CHLORIDE 104 mmol/L (98-107); CREATININE 0.99 mg/dL (0.70-1.30); SGOT/AST 35 IU/L (3-35); SGPT/ALT 47 U/L (12-78); SODIUM 137 mmol/L (136-145); TOTAL PROTEIN 7.7 gm/dL (6.4-8.2)
[2019-06-07 10:27] LABS: TROPONIN I < 0.015 ng/ml (<0.045)
== END 2019-06-07 13:34 | disposition home or self-care (01) ==
LOC: ED 09:41
PROVIDERS: Emergency Medicine
DX: J44.1 Chronic obstructive pulmonary disease with (acute) exacerbation (principal); R09.1 Pleurisy; I10 Essential (primary) hypertension; E66.9 Obesity, unspecified; G62.9 Polyneuropathy, unspecified; Z87.891 Personal history of nicotine dependence; Z68.39 Body mass index [BMI] 39.0-39.9, adult

== ENCOUNTER → 2019-07-07 | Outpatient (CLI) | payer SELFPAY | END | disposition home or self-care (01) | LOC: RESCLI 01:24 | DX: J32.0 Chronic maxillary sinusitis (principal); J44.9 Chronic obstructive pulmonary disease, unspecified; F33.1 Major depressive disorder, recurrent, moderate; E66.9 Obesity, unspecified; G57.93 Unspecified mononeuropathy of bilateral lower limbs; Z79.899 Other long term (current) drug therapy; Z88.0 Allergy status to penicillin ==

== ENCOUNTER → 2019-10-17 | Outpatient (CLI) | payer SELFPAY | END | disposition home or self-care (01) | LOC: RESCLI 01:02 | DX: J44.9 Chronic obstructive pulmonary disease, unspecified (principal); J32.0 Chronic maxillary sinusitis; Z88.0 Allergy status to penicillin; Z79.899 Other long term (current) drug therapy ==

== ENCOUNTER → 2020-05-22 | Outpatient (CLI) | payer SELFPAY | END | disposition home or self-care (01) | LOC: RESCLI 00:48 | PROVIDERS: ATTEND Internal Medicine Nephrology | DX: J32.0 Chronic maxillary sinusitis (principal); J44.9 Chronic obstructive pulmonary disease, unspecified; E66.01 Morbid (severe) obesity due to excess calories; G62.9 Polyneuropathy, unspecified; E88.81 Metabolic syndrome and other insulin resistance; I10 Essential (primary) hypertension; Z68.41 Body mass index [BMI] 40.0-44.9, adult; Z79.899 Other long term (current) drug therapy; Z98.890 Other specified postprocedural states; Z87.891 Personal history of nicotine dependence; Z88.0 Allergy status to penicillin ==

== ENCOUNTER → 2020-06-27 | Outpatient (CLI) | payer SELFPAY | END | disposition home or self-care (01) | LOC: RESCLI 01:14 → EDSTATUS 10:36 | PROVIDERS: ATTEND Internal Medicine | DX: J32.0 Chronic maxillary sinusitis (principal); J44.1 Chronic obstructive pulmonary disease with (acute) exacerbation; J44.9 Chronic obstructive pulmonary disease, unspecified; Z68.41 Body mass index [BMI] 40.0-44.9, adult; Z79.899 Other long term (current) drug therapy; Z98.890 Other specified postprocedural states; Z88.0 Allergy status to penicillin ==

== ENCOUNTER 2020-07-24 10:46 | Emergency (ER) | payer SELFPAY ==
[~2020-07-24] VITALS: Wt 119.3 kg
[2020-07-24 11:43] LABS: BASO % 0.5 % (0.0-1.0); EOS # 0.4 10*3/uL (0.0-0.4); EOS % 6.2 % (1.0-4.0); HEMATOCRIT 44.6 % (42.0-52.0); LYMPH # 1.7 10*3/uL (1.3-4.4); MEAN CORPUSCULAR HGB 29.7 pg (27.0-31.0); MEAN CORPUSCULAR HGB CONC 33.4 g/dl (33.0-37.0); MONO # 0.4 10*3/uL (0.1-1.0); MONO % 6.6 % (3.0-9.0); NEUT # 3.7 10*3/uL (2.3-7.9); NEUT % 59.5 % (47.0-73.0); PLATELET COUNT AUTOMATED 289 10*3/uL (130-400); RED BLOOD COUNT 5.01 10*6/uL (4.50-5.90); RED CELL DISTRI WIDTH 12.6 % (0-14.5); WHITE BLOOD COUNT 6.3 10*3/uL (4.8-10.8)
[2020-07-24 11:52] LABS: INTERNATIONAL NORM RATIO 0.9 (2.0-3.5)
[2020-07-24 12:10] LABS: ALBUMIN 4.2 gm/dl (3.1-4.5); ALKALINE PHOSPHATASE 90 U/L (45-117); BUN 20 mg/dl (7-24); CHLORIDE 110 mmol/L (98-107); CREATININE 0.95 mg/dL (0.70-1.30); POTASSIUM 4.5 mmol/L (3.5-5.1); SGOT/AST 37 IU/L (3-35); SGPT/ALT 38 U/L (12-78); SODIUM 140 mmol/L (136-145); TOTAL PROTEIN 7.8 gm/dL (6.4-8.2)
[2020-07-24 12:26] LABS: TROPONIN I < 0.015 ng/ml (<0.045)
[2020-07-24] MEDS ORDERED: VIBRAMYCIN100 MG PO (12:38)
[2020-07-24] MEDS ORDERED: PREDNISONE20 M1 PO (12:38)
== END 2020-07-24 12:42 | disposition home or self-care (01) ==
LOC: ED 10:46
PROVIDERS: Physician Assistant
DX: J44.1 Chronic obstructive pulmonary disease with (acute) exacerbation (principal); Z88.0 Allergy status to penicillin; Z79.899 Other long term (current) drug therapy

== ENCOUNTER → 2020-08-01 | Outpatient (CLI) | payer SELFPAY | END | disposition home or self-care (01) | LOC: RESCLI 00:34 | PROVIDERS: ATTEND Internal Medicine Nephrology | DX: J32.0 Chronic maxillary sinusitis (principal); J44.9 Chronic obstructive pulmonary disease, unspecified; Z68.41 Body mass index [BMI] 40.0-44.9, adult; Z79.899 Other long term (current) drug therapy; Z98.890 Other specified postprocedural states; Z87.891 Personal history of nicotine dependence; Z88.0 Allergy status to penicillin ==

== ENCOUNTER 2020-08-27 15:15 | Emergency (ER) | payer SELFPAY ==
[~2020-08-27] VITALS: Ht 175.2 cm; Wt 122.5 kg
[2020-08-27 16:42] LABS: BASO % 0.5 % (0.0-1.0); EOS # 0.4 10*3/uL (0.0-0.4); EOS % 4.7 % (1.0-4.0); HEMATOCRIT 43.5 % (42.0-52.0); LYMPH % 23.6 % (27.0-41.0); MEAN CELL VOLUME 88.2 fl (80.0-94.0); MEAN CORPUSCULAR HGB 29.8 pg (27.0-31.0); MEAN CORPUSCULAR HGB CONC 33.8 g/dl (33.0-37.0); MEAN PLATELET VOLUME 8.8 fl (9.6-12.3); MONO # 0.6 10*3/uL (0.1-1.0); MONO % 6.9 % (3.0-9.0); NEUT # 5.5 10*3/uL (2.3-7.9); NEUT % 64.1 % (47.0-73.0); PLATELET COUNT AUTOMATED 295 10*3/uL (130-400); RED BLOOD COUNT 4.93 10*6/uL (4.50-5.90); RED CELL DISTRI WIDTH 12.9 % (0-14.5); WHITE BLOOD COUNT 8.5 10*3/uL (4.8-10.8)
[2020-08-27 17:00] LABS: INTERNATIONAL NORM RATIO 0.9 (2.0-3.5)
[2020-08-27 17:01] LABS: ALBUMIN 4.2 gm/dl (3.1-4.5); ALKALINE PHOSPHATASE 87 U/L (45-117); BUN 18 mg/dl (7-24); CHLORIDE 108 mmol/L (98-107); CREATININE 0.92 mg/dL (0.70-1.30); POTASSIUM 3.5 mmol/L (3.5-5.1); SGOT/AST 27 IU/L (3-35); SGPT/ALT 39 U/L (12-78); SODIUM 138 mmol/L (136-145); TOTAL PROTEIN 7.5 gm/dL (6.4-8.2)
[2020-08-27 17:04] LABS: TROPONIN I < 0.015 ng/ml (<0.045)
[2020-08-27] MEDS ORDERED: PREDNISONE50 MG PO (20:36)
[2020-08-27] MEDS ORDERED: ZITHROMAX250 MG PO (20:41)
== END 2020-08-27 21:05 | disposition home or self-care (01) ==
LOC: ED 15:15
PROVIDERS: Physician Assistant
DX: J44.1 Chronic obstructive pulmonary disease with (acute) exacerbation (principal); Z79.899 Other long term (current) drug therapy; Z20.828 Contact with and (suspected) exposure to other viral communicable diseases

== ENCOUNTER → 2020-09-02 | Outpatient (CLI) | payer SELFPAY | END | disposition home or self-care (01) | LOC: RESCLI 00:22 | PROVIDERS: ATTEND Internal Medicine Nephrology | DX: J44.9 Chronic obstructive pulmonary disease, unspecified (principal); I10 Essential (primary) hypertension; Z79.899 Other long term (current) drug therapy; Z88.0 Allergy status to penicillin ==

== ENCOUNTER 2021-09-10 11:30 | Emergency (ER) | payer SELFPAY ==
[~2021-09-10] VITALS: Wt 131.5 kg
[2021-09-10] MEDS ORDERED: PROVENTIL HFA6.7 GM INH (14:44)
[2021-09-10] MEDS ORDERED: PREDNISONE20 M1 PO (14:44)
== END 2021-09-10 14:52 | disposition home or self-care (01) ==
LOC: ED 11:30
DX: J44.1 Chronic obstructive pulmonary disease with (acute) exacerbation (principal); Z20.822 Contact with and (suspected) exposure to COVID-19; F17.210 Nicotine dependence, cigarettes, uncomplicated; Z88.0 Allergy status to penicillin; Z79.899 Other long term (current) drug therapy; Z79.2 Long term (current) use of antibiotics

== ENCOUNTER 2021-09-27 10:07 | Emergency (ER) | payer SELFPAY ==
[~2021-09-27] VITALS: Wt 133.8 kg
[2021-09-27 10:49] LABS: BASO % 0.3 % (0.0-1.0); EOS # 0.2 10*3/uL (0.0-0.4); EOS % 3.5 % (1.0-4.0); HEMATOCRIT 43.8 % (42.0-52.0); LYMPH # 1.8 10*3/uL (1.3-4.4); LYMPH % 26.5 % (27.0-41.0); MEAN CELL VOLUME 90.9 fl (80.0-94.0); MEAN CORPUSCULAR HGB 30.7 pg (27.0-31.0); MEAN CORPUSCULAR HGB CONC 33.8 g/dl (33.0-37.0); MEAN PLATELET VOLUME 9.1 fl (9.6-12.3); MONO # 0.5 10*3/uL (0.1-1.0); MONO % 6.8 % (3.0-9.0); NEUT # 4.1 10*3/uL (2.3-7.9); NEUT % 62.6 % (47.0-73.0); PLATELET COUNT AUTOMATED 263 10*3/uL (130-400); RED BLOOD COUNT 4.82 10*6/uL (4.50-5.90); RED CELL DISTRI WIDTH 12.3 % (0-14.5); WHITE BLOOD COUNT 6.6 10*3/uL (4.8-10.8)
[2021-09-27 11:04] LABS: ALBUMIN 3.7 gm/dl (3.1-4.5); ALKALINE PHOSPHATASE 73 U/L (45-117); BUN 20 mg/dl (7-24); CHLORIDE 108 mmol/L (98-107); CREATININE 0.92 mg/dL (0.70-1.30); POTASSIUM 4.4 mmol/L (3.5-5.1); SGOT/AST 28 IU/L (3-35); SGPT/ALT 32 U/L (12-78); SODIUM 139 mmol/L (136-145); TOTAL PROTEIN 7.3 gm/dL (6.4-8.2)
[2021-09-27] MEDS ORDERED: LEVOFLOXACIN500 MG PO (11:25)
[2021-09-27] MEDS ORDERED: PREDNISONE10 MG PO (11:25)
== END 2021-09-27 11:29 | disposition home or self-care (01) ==
LOC: ED 10:07
PROVIDERS: Student in an Organized Health Care Education/Training Program
DX: J44.1 Chronic obstructive pulmonary disease with (acute) exacerbation (principal); Z87.891 Personal history of nicotine dependence; Z88.0 Allergy status to penicillin

== ENCOUNTER 2021-10-26 15:38 | Emergency (ER) | payer SELFPAY ==
[~2021-10-26] VITALS: Ht 177.8 cm; Wt 130.6 kg
[~2021-10-26 15:38] MED LIST changes: +LEVOFLOXACIN500 MG PO
[2021-10-26 15:57] LABS: BASO % 0.4 % (0.0-1.0); EOS # 0.3 10*3/uL (0.0-0.4); EOS % 4.2 % (1.0-4.0); HEMATOCRIT 42.8 % (42.0-52.0); LYMPH % 25.9 % (27.0-41.0); MEAN CELL VOLUME 89.2 fl (80.0-94.0); MEAN CORPUSCULAR HGB 30.4 pg (27.0-31.0); MEAN CORPUSCULAR HGB CONC 34.1 g/dl (33.0-37.0); MEAN PLATELET VOLUME 9.1 fl (9.6-12.3); MONO # 0.6 10*3/uL (0.1-1.0); MONO % 7.2 % (3.0-9.0); NEUT # 4.8 10*3/uL (2.3-7.9); PLATELET COUNT AUTOMATED 270 10*3/uL (130-400); RED CELL DISTRI WIDTH 12.6 % (0-14.5); WHITE BLOOD COUNT 7.7 10*3/uL (4.8-10.8)
[2021-10-26 16:07] LABS: ACT PARTIAL THROMBO TIME 26.3 SECONDS (20.0-32.1)
[2021-10-26 16:18] LABS: ALKALINE PHOSPHATASE 84 U/L (45-117); BUN 16 mg/dl (7-24); CHLORIDE 109 mmol/L (98-107); CREATININE 0.99 mg/dL (0.70-1.30); POTASSIUM 4.1 mmol/L (3.5-5.1); SGOT/AST 29 IU/L (3-35); SGPT/ALT 32 U/L (12-78); SODIUM 139 mmol/L (136-145)
[2021-10-26] MEDS ORDERED: CLINDAMYCIN HC300 MG PO (17:59)
[2021-10-26] MEDS ORDERED: PREDNISONE50 MG PO (17:59)
== END 2021-10-26 17:59 | disposition home or self-care (01) ==
LOC: ED 15:38
PROVIDERS: Emergency Medicine
DX: J44.1 Chronic obstructive pulmonary disease with (acute) exacerbation (principal); Z88.0 Allergy status to penicillin; Z87.891 Personal history of nicotine dependence

== ENCOUNTER → 2021-11-17 | Outpatient (CLI) | payer SELFPAY ==
[~2021-11-17] MED LIST changes: +CLINDAMYCIN HC300 MG PO
== END | disposition home or self-care (01) ==
LOC: RESCLI 00:39
PROVIDERS: ATTEND Internal Medicine Nephrology
DX: J44.9 Chronic obstructive pulmonary disease, unspecified (principal); J32.0 Chronic maxillary sinusitis; E66.01 Morbid (severe) obesity due to excess calories; Z68.41 Body mass index [BMI] 40.0-44.9, adult; Z87.891 Personal history of nicotine dependence; Z79.899 Other long term (current) drug therapy; Z98.890 Other specified postprocedural states

== ENCOUNTER → 2021-12-22 | Outpatient (CLI) | payer SELFPAY | END | disposition home or self-care (01) | LOC: RESCLI 00:23 | PROVIDERS: ATTEND Internal Medicine Nephrology | DX: E66.01 Morbid (severe) obesity due to excess calories (principal); J44.9 Chronic obstructive pulmonary disease, unspecified; I10 Essential (primary) hypertension; Z79.899 Other long term (current) drug therapy; Z88.0 Allergy status to penicillin ==

== ENCOUNTER → 2022-01-12 | Outpatient (CLI) | payer SELFPAY | END | disposition home or self-care (01) | LOC: RESCLI 02:42 | PROVIDERS: ATTEND Internal Medicine Nephrology | DX: R05.9 Cough, unspecified (principal); R06.2 Wheezing; J44.9 Chronic obstructive pulmonary disease, unspecified; E66.01 Morbid (severe) obesity due to excess calories; I10 Essential (primary) hypertension; R22.1 Localized swelling, mass and lump, neck; Z79.899 Other long term (current) drug therapy; Z88.0 Allergy status to penicillin ==

== ENCOUNTER → 2022-02-24 | Outpatient (CLI) | payer BC | END | disposition home or self-care (01) | LOC: US 13:22 | PROVIDERS: ATTEND Internal Medicine | DX: R22.1 Localized swelling, mass and lump, neck (principal) ==

== ENCOUNTER 2022-06-01 12:10 | Emergency (ER) | payer SELFPAY ==
[~2022-06-01] VITALS: Ht 177.8 cm; Wt 129.3 kg
[2022-06-01 12:49] LABS: BASO % 0.6 % (0.0-1.0); EOS # 0.6 10*3/uL (0.0-0.4); EOS % 7.6 % (1.0-4.0); HEMATOCRIT 46.5 % (42.0-52.0); LYMPH # 1.8 10*3/uL (1.3-4.4); LYMPH % 25.1 % (27.0-41.0); MEAN CELL VOLUME 90.3 fl (80.0-94.0); MEAN CORPUSCULAR HGB 31.1 pg (27.0-31.0); MEAN CORPUSCULAR HGB CONC 34.4 g/dl (33.0-37.0); MEAN PLATELET VOLUME 9.2 fl (9.6-12.3); MONO # 0.5 10*3/uL (0.1-1.0); MONO % 6.4 % (3.0-9.0); NEUT # 4.3 10*3/uL (2.3-7.9); PLATELET COUNT AUTOMATED 245 10*3/uL (130-400); RED BLOOD COUNT 5.15 10*6/uL (4.50-5.90); RED CELL DISTRI WIDTH 12.1 % (0-14.5); WHITE BLOOD COUNT 7.2 10*3/uL (4.8-10.8)
[2022-06-01 13:06] LABS: ALKALINE PHOSPHATASE 97 U/L (45-117); BUN 15 mg/dl (7-24); CHLORIDE 108 mmol/L (98-107); CREATININE 0.97 mg/dL (0.70-1.30); POTASSIUM 3.5 mmol/L (3.5-5.1); SGOT/AST 21 IU/L (3-35); SGPT/ALT 30 U/L (12-78); SODIUM 139 mmol/L (136-145); TOTAL PROTEIN 7.2 gm/dL (6.4-8.2)
[2022-06-01] MEDS ORDERED: TAMIFLU 75MG CA75 MG PO (14:46)
== END 2022-06-01 15:06 | disposition home or self-care (01) ==
LOC: ED 12:10
PROVIDERS: Nurse Practitioner Family
DX: J10.1 Influenza due to other identified influenza virus with other respiratory manifestations (principal); Z20.822 Contact with and (suspected) exposure to COVID-19; Z88.0 Allergy status to penicillin; Z87.891 Personal history of nicotine dependence

== ENCOUNTER → 2022-06-10 | Outpatient (CLI) | payer SELFPAY ==
[~2022-06-10] MED LIST changes: +TAMIFLU 75MG CA75 MG PO
== END | disposition home or self-care (01) ==
LOC: RESCLI 00:50
PROVIDERS: ATTEND Internal Medicine
DX: J44.1 Chronic obstructive pulmonary disease with (acute) exacerbation (principal); I10 Essential (primary) hypertension; E66.01 Morbid (severe) obesity due to excess calories; Z87.891 Personal history of nicotine dependence; Z88.0 Allergy status to penicillin; Z98.890 Other specified postprocedural states; Z79.899 Other long term (current) drug therapy

== ENCOUNTER → 2022-06-24 | Outpatient (CLI) | payer SELFPAY | END | disposition home or self-care (01) | LOC: RESCLI 01:54 | PROVIDERS: ATTEND Student in an Organized Health Care Education/Training Program | DX: J44.1 Chronic obstructive pulmonary disease with (acute) exacerbation (principal); I10 Essential (primary) hypertension; E55.9 Vitamin D deficiency, unspecified; E66.01 Morbid (severe) obesity due to excess calories; Z98.890 Other specified postprocedural states; Z88.0 Allergy status to penicillin; Z87.891 Personal history of nicotine dependence; Z79.899 Other long term (current) drug therapy ==

== ENCOUNTER → 2022-07-23 | Outpatient (CLI) | payer BC | END | disposition home or self-care (01) | LOC: RESCLI 10:41 | PROVIDERS: ATTEND Student in an Organized Health Care Education/Training Program | DX: J06.9 Acute upper respiratory infection, unspecified (principal); I10 Essential (primary) hypertension; J44.9 Chronic obstructive pulmonary disease, unspecified; Z79.899 Other long term (current) drug therapy ==

== ENCOUNTER → 2022-07-25 | Outpatient (CLI) | payer BC | END | disposition home or self-care (01) | LOC: LAB 09:18 | PROVIDERS: Student in an Organized Health Care Education/Training Program; ATTEND Internal Medicine | DX: I10 Essential (primary) hypertension (principal); E55.9 Vitamin D deficiency, unspecified; E66.01 Morbid (severe) obesity due to excess calories ==

== ENCOUNTER → 2022-08-25 | Outpatient (CLI) | payer BC | END | disposition home or self-care (01) | LOC: RESCLI 13:54 | PROVIDERS: ATTEND Internal Medicine | DX: S49.91XD Unspecified injury of right shoulder and upper arm, subsequent encounter (principal); M19.011 Primary osteoarthritis, right shoulder; M47.812 Spondylosis without myelopathy or radiculopathy, cervical region; M48.02 Spinal stenosis, cervical region; M25.78 Osteophyte, vertebrae; M25.711 Osteophyte, right shoulder; M25.511 Pain in right shoulder; M54.2 Cervicalgia; I10 Essential (primary) hypertension; J44.9 Chronic obstructive pulmonary disease, unspecified; Z12.11 Encounter for screening for malignant neoplasm of colon; Z79.899 Other long term (current) drug therapy; Z88.0 Allergy status to penicillin; Z98.890 Other specified postprocedural states; Z87.891 Personal history of nicotine dependence; X58.XXXD Exposure to other specified factors, subsequent encounter ==

== ENCOUNTER 2022-10-02 12:03 | Emergency (ER) | payer BC ==
[~2022-10-02] VITALS: Ht 175.2 cm; Wt 122.5 kg
[2022-10-02 13:30] LABS: BASO % 0.3 % (0.0-1.0); EOS # 0.1 10*3/uL (0.0-0.4); EOS % 2.1 % (1.0-4.0); HEMATOCRIT 45.4 % (42.0-52.0); LYMPH # 1.1 10*3/uL (1.3-4.4); LYMPH % 18.4 % (27.0-41.0); MEAN CORPUSCULAR HGB CONC 34.1 g/dl (33.0-37.0); MONO # 0.4 10*3/uL (0.1-1.0); MONO % 6.5 % (3.0-9.0); NEUT # 4.2 10*3/uL (2.3-7.9); NEUT % 72.4 % (47.0-73.0); PLATELET COUNT AUTOMATED 225 10*3/uL (130-400); RED BLOOD COUNT 5.16 10*6/uL (4.50-5.90); RED CELL DISTRI WIDTH 12.4 % (0-14.5); WHITE BLOOD COUNT 5.8 10*3/uL (4.8-10.8)
[2022-10-02 13:56] LABS: ALKALINE PHOSPHATASE 83 U/L (46-116); BUN 17 mg/dl (9-23); CHLORIDE 102 mmol/L (98-107); POTASSIUM 3.6 mmol/L (3.4-5.1); SGPT/ALT 23 U/L (10-49); TOTAL PROTEIN 7.1 gm/dL (6.0-8.0)
[2022-10-02] MEDS ORDERED: PREDNISONE20 M1 PO (14:22)
[2022-10-02] MEDS ORDERED: PROVENTIL HFA6.7 GM INH (14:22)
== END 2022-10-02 14:35 | disposition home or self-care (01) ==
LOC: ED 12:03
PROVIDERS: Physician Assistant
DX: J44.1 Chronic obstructive pulmonary disease with (acute) exacerbation (principal); Z20.822 Contact with and (suspected) exposure to COVID-19; Z88.0 Allergy status to penicillin; F17.210 Nicotine dependence, cigarettes, uncomplicated

== ENCOUNTER → 2022-10-05 | Outpatient (CLI) | payer BC | END | disposition home or self-care (01) | LOC: RESCLI 01:34 | PROVIDERS: ATTEND Student in an Organized Health Care Education/Training Program | DX: J44.9 Chronic obstructive pulmonary disease, unspecified (principal); I10 Essential (primary) hypertension; E78.5 Hyperlipidemia, unspecified; M25.511 Pain in right shoulder; Z88.0 Allergy status to penicillin; Z87.891 Personal history of nicotine dependence; Z72.89 Other problems related to lifestyle; Z98.890 Other specified postprocedural states; Z79.899 Other long term (current) drug therapy ==

== ENCOUNTER → 2022-10-12 | Day surgery (SDC) | payer BC ==
[~2022-10-12] VITALS: Ht 175.2 cm; Wt 124.7 kg
[~2022-10-12] MED LIST changes: +HYDR25T PO
[2022-10-12 08:16] VITALS: BP 119/67
[2022-10-12 08:54] VITALS: BP 109/61
[2022-10-12 09:09] VITALS: BP 105/64
[2022-10-12 09:24] VITALS: BP 115/63
== END | disposition home or self-care (01) ==
LOC: SDC 10-01 12:30
PROVIDERS: ATTEND Surgery
DX: Z12.11 Encounter for screening for malignant neoplasm of colon (principal); D12.3 Benign neoplasm of transverse colon; I10 Essential (primary) hypertension; J44.9 Chronic obstructive pulmonary disease, unspecified; G62.9 Polyneuropathy, unspecified; Z87.891 Personal history of nicotine dependence; Z88.0 Allergy status to penicillin

== ENCOUNTER → 2022-11-05 | Day surgery (SDC) | payer BC ==
[2022-11-03 13:14] LABS: BUN 13 mg/dl (9-23); CHLORIDE 103 mmol/L (98-107); POTASSIUM 3.7 mmol/L (3.4-5.1)
[~2022-11-05] VITALS: Ht 175.2 cm; Wt 127.0 kg
[~2022-11-05] MED LIST changes: +LIPITOR40 MG PO
[2022-11-05 08:39] VITALS: BP 130/79
[2022-11-05 10:05] VITALS: BP 103/41
[2022-11-05 10:20] VITALS: BP 113/56
[2022-11-05 10:34] VITALS: BP 109/66
== END | disposition home or self-care (01) ==
LOC: SDC 11-02 10:15
PROVIDERS: ATTEND Orthopaedic Surgery
DX: G56.01 Carpal tunnel syndrome, right upper limb (principal); G62.9 Polyneuropathy, unspecified; I10 Essential (primary) hypertension; J44.9 Chronic obstructive pulmonary disease, unspecified; Z88.0 Allergy status to penicillin; Z87.891 Personal history of nicotine dependence

== ENCOUNTER 2022-11-26 07:55 | Emergency (ER) | payer BC ==
[~2022-11-26] VITALS: Wt 127.0 kg
[2022-11-26] MEDS ORDERED: IBU800 M2 PO (08:22)
[2022-11-26] MEDS ORDERED: CYCLOBENZAPRINE10 MG PO (08:22)
== END 2022-11-26 08:03 | disposition home or self-care (01) ==
LOC: ED 07:55
DX: S16.1XXA Strain of muscle, fascia and tendon at neck level, initial encounter (principal); S29.011A Strain of muscle and tendon of front wall of thorax, initial encounter; J44.9 Chronic obstructive pulmonary disease, unspecified; I10 Essential (primary) hypertension; J45.909 Unspecified asthma, uncomplicated; Z88.0 Allergy status to penicillin; F17.210 Nicotine dependence, cigarettes, uncomplicated; X50.1XXA Overexertion from prolonged static or awkward postures, initial encounter; Y93.89 Activity, other specified; Y92.89 Other specified places as the place of occurrence of the external cause; Y99.8 Other external cause status

== ENCOUNTER → 2022-11-28 | Outpatient (CLI) | payer BC ==
[~2022-11-28] MED LIST changes: +CYCLOBENZAPRINE10 MG PO; +IBU800 M2 PO
== END | disposition home or self-care (01) ==
LOC: LAB 10:24
PROVIDERS: ATTEND Internal Medicine Critical Care Medicine
DX: Z79.899 Other long term (current) drug therapy (principal)

== ENCOUNTER → 2022-12-08 | Outpatient (CLI) | payer BC ==
[2022-12-08 08:50] LABS: BASO % 0.5 % (0.0-1.0); EOS # 0.5 10*3/uL (0.0-0.4); EOS % 6.2 % (1.0-4.0); HEMATOCRIT 46.4 % (42.0-52.0); LYMPH # 2.5 10*3/uL (1.3-4.4); LYMPH % 30.5 % (27.0-41.0); MEAN CELL VOLUME 87.9 fl (80.0-94.0); MEAN CORPUSCULAR HGB 30.7 pg (27.0-31.0); MEAN CORPUSCULAR HGB CONC 34.9 g/dl (33.0-37.0); MEAN PLATELET VOLUME 9.1 fl (9.6-12.3); MONO # 0.5 10*3/uL (0.1-1.0); MONO % 6.2 % (3.0-9.0); NEUT # 4.7 10*3/uL (2.3-7.9); NEUT % 56.2 % (47.0-73.0); PLATELET COUNT AUTOMATED 269 10*3/uL (130-400); RED BLOOD COUNT 5.28 10*6/uL (4.50-5.90); RED CELL DISTRI WIDTH 12.3 % (0-14.5); WHITE BLOOD COUNT 8.3 10*3/uL (4.8-10.8)
== END | disposition home or self-care (01) ==
LOC: LAB 08:25
PROVIDERS: ATTEND Internal Medicine Critical Care Medicine
DX: Z79.899 Other long term (current) drug therapy (principal)

== ENCOUNTER → 2022-12-24 | Day surgery (SDC) | payer BC ==
[~2022-12-24] VITALS: Ht 175.2 cm; Wt 127.0 kg
[2022-12-24 07:08] VITALS: BP 137/67
[2022-12-24 07:59] VITALS: BP 115/70
[2022-12-24 08:14] VITALS: BP 130/67
[2022-12-24 08:28] VITALS: BP 132/74
== END | disposition home or self-care (01) ==
LOC: SDC 12-21 09:30
PROVIDERS: ATTEND Orthopaedic Surgery
DX: G56.03 Carpal tunnel syndrome, bilateral upper limbs (principal); I10 Essential (primary) hypertension; J44.9 Chronic obstructive pulmonary disease, unspecified; Z87.891 Personal history of nicotine dependence; Z88.0 Allergy status to penicillin; G62.9 Polyneuropathy, unspecified

== ENCOUNTER → 2023-01-08 | Outpatient (CLI) | payer BC | END | disposition home or self-care (01) | LOC: RESCLI 15:10 | PROVIDERS: ATTEND Internal Medicine | DX: J44.1 Chronic obstructive pulmonary disease with (acute) exacerbation (principal); I10 Essential (primary) hypertension; E78.5 Hyperlipidemia, unspecified; M15.0 Primary generalized (osteo)arthritis; D22.30 Melanocytic nevi of unspecified part of face; Z88.0 Allergy status to penicillin; Z98.890 Other specified postprocedural states; Z87.891 Personal history of nicotine dependence; Z79.899 Other long term (current) drug therapy ==

== ENCOUNTER → 2023-03-12 | Outpatient (CLI) | payer OTHER, BC | END | disposition home or self-care (01) | LOC: RAD 12:02 | PROVIDERS: ATTEND Family Medicine | DX: S90.02XA Contusion of left ankle, initial encounter (principal); S90.32XA Contusion of left foot, initial encounter; V89.2XXA Person injured in unspecified motor-vehicle accident, traffic, initial encounter; Y93.89 Activity, other specified; Y92.89 Other specified places as the place of occurrence of the external cause; Y99.8 Other external cause status ==

== ENCOUNTER → 2023-04-09 | Outpatient (CLI) | payer OTHER | END | disposition home or self-care (01) | LOC: LAB 00:35 → MRI 13:00 → LAB 13:00 | PROVIDERS: ATTEND Family Medicine | DX: S93.602A Unspecified sprain of left foot, initial encounter (principal); S90.02XA Contusion of left ankle, initial encounter; S96.912A Strain of unspecified muscle and tendon at ankle and foot level, left foot, initial encounter; S93.402A Sprain of unspecified ligament of left ankle, initial encounter; R60.9 Edema, unspecified; M19.072 Primary osteoarthritis, left ankle and foot; X58.XXXA Exposure to other specified factors, initial encounter; Y93.89 Activity, other specified; Y92.89 Other specified places as the place of occurrence of the external cause; Y99.8 Other external cause status ==

== ENCOUNTER 2024-03-17 15:11 | Emergency (ER) | payer OTHER ==
[~2024-03-17] VITALS: Ht 172.7 cm; Wt 122.5 kg
[2024-03-17] MEDS ORDERED: Doxycycline Hyclate 100 MG CAP PO ONE (16:05)
[2024-03-17] MEDS ORDERED: Sulfamethoxazole/Trimethopri 1 TAB TAB PO ONE (16:05)
[2024-03-17] MEDS ORDERED: SEPTDS PO (16:11)
[2024-03-17] MEDS ORDERED: VIBRAMYCIN100 MG PO (16:11)
== END 2024-03-17 16:21 | disposition home or self-care (01) ==
LOC: ED 15:11
DX: L02.01 Cutaneous abscess of face (principal); J44.9 Chronic obstructive pulmonary disease, unspecified; I10 Essential (primary) hypertension; F12.90 Cannabis use, unspecified, uncomplicated; Z88.0 Allergy status to penicillin; Z98.890 Other specified postprocedural states

== ENCOUNTER 2025-01-04 10:33 | Emergency (ER) | payer OTHER ==
[~2025-01-04] VITALS: Ht 175.2 cm; Wt 112.5 kg
[~2025-01-04 10:33] MED LIST changes: +SEPTDS PO
[2025-01-04] MEDS ORDERED: VIBRAMYCIN100 MG PO (12:00)
== END 2025-01-04 11:51 | disposition home or self-care (01) ==
LOC: ED 10:33
DX: S81.812A Laceration without foreign body, left lower leg, initial encounter (principal); I10 Essential (primary) hypertension; J44.9 Chronic obstructive pulmonary disease, unspecified; J45.909 Unspecified asthma, uncomplicated; Z79.899 Other long term (current) drug therapy; Z88.0 Allergy status to penicillin; Z98.890 Other specified postprocedural states; W05.2XXA Fall from non-moving motorized mobility scooter, initial encounter; Y93.89 Activity, other specified; Y92.89 Other specified places as the place of occurrence of the external cause; Y99.8 Other external cause status